=== PATIENT | male | born 1965 | race African-American/Black ===

== ENCOUNTER 2016-11-09 09:19 | Inpatient (IN) ==
[2016-11-09] MEDS ORDERED: LASIX IV ONE (12:01)
[2016-11-09 12:07] LABS: MANUAL DIFF NEEDED? NO
[2016-11-09 12:13] LABS: BASO% 0.4 % (0.0-0.8); EOS# 0.07 X1000 (0.0-0.7); EOS% 0.6 % (0.0-10.0); HEMATOCRIT 41.4 % (42.0-52.0); HEMOGLOBIN 14.2 g/dL (14.0-18.0); IMM GRAN# 0.04 X1000 (0.0-0.04); IMM GRAN% 0.4 % (0.0-0.5); LYMPH% 9.8 % (20.5-51.1); MCH 29.2 PG (27-31); MCHC 34.3 g/dL (33-37); MONO# 1.79 X1000 (0.11-0.59); MPV 13.3 FL (7.4-10.4); NEUT% 72.8 % (42.2-75.2); PLT 229 X1000 (130-400); RBC 4.87 XMIL (4.7-6.1)
[2016-11-09] MEDS ORDERED: LOVENOX SUBQ SCH (12:15)
[2016-11-09] MEDS: PROTONIX IV SCH ×2 (12:18→22:08)
[2016-11-09] MEDS: CARDIZEM 100 MG/NS 100 MG/100 ML IVPB IV SCH ×3 (12:18→22:04)
[2016-11-09] MEDS: SODIUM CHLORIDE 0.9% INJ SCH (12:18)
[2016-11-09 12:35] LABS: HEMOGLOBIN A1C 5.8 % (4.8-6.0)
[2016-11-09 12:38] LABS: ALBUMIN 3.4 g/dL (3.5-5.0); CALCIUM 8.9 mg/dL (8.8-10.2); POTASSIUM 3.6 mmol/L (3.5-5.1); TOTAL BILIRUBIN 1.69 mg/dL (0.20-1.00); TOTAL PROTEIN 6.5 g/dL (6.3-8.3)
--- NOTE | 2016-11-09 12:43 | Diag Imaging Result Doc PS360 ---
EXAM: CHEST-PORTABLE - 11/09/2016 HISTORY: sob TECHNIQUE: Portable chest 1230 COMPARISON: 10/28/2013 FINDINGS: There is stable cardiomegaly. There is prominence of central vascular markings on the right which appears to be chronic. There is limited detail the left base due to technical factors. The remainder lungs appear essentially clear. There is no gross vascular congestion, pleural effusion, or pneumothorax identified. IMPRESSION: Stable cardiomegaly and prominence of central vascular markings on the right. No definite acute changes. There is limited detail the left base due to technical factors. Electronically signed by Williams Torres 11/09/2016 12:41 PM
--- NOTE | 2016-11-09 12:47 | EKG Report ---
Test Performed on : 11/09/2016 09:53:49 AM Test Reason : chest pain Blood Pressure : / mmHG Vent. Rate : 125 BPM Atrial Rate : 359 BPM P-R Int : 000 ms QRS Dur : 102 ms QT Int : 366 ms P-R-T Axes : 000 -55 108 degrees QTc Int : 528 ms Atrial flutter. with variable AV block. Left axis deviation Inferior infarct , age undetermined Possible Anterior infarct (cited on or before 22-OCT-2013) ST \T\ T wave abnormality, consider lateral ischemia Abnormal ECG When compared with ECG of 28-OCT-2013 21:12, Atrial flutter. has replaced Sinus rhythm. Vent. rate has increased BY 55 BPM Incomplete right bundle branch block is no longer present Inferior infarct is now present Confirmed by Eder DIMAS, Armen Lazar ([id number]) on 11/09/2016 6:23:24 PM
[2016-11-09 13:41] LABS: ALLEN TEST NO; BLOOD TYPE ARTERIAL; DRAW SITE L BRACHIAL; METHB 0.9 % (0.0-1.5); PCO2(98.6) 36 mmHg (35-45); PO2(98.6) 70 mmHg (60-100); SAMPLE BLOOD; SAO2 96.3 % (95.0-100.0); THB 14.5 g/dL (11.5-17.4); pH(98.6) 7.46 (7.35-7.45)
[2016-11-09 13:50] LABS: MODALITY CANNULA
[2016-11-09] MEDS ORDERED: LOVENOX SUBQ ONE (14:29)
[2016-11-09] MEDS ORDERED: CORDARONE 150 MG/D5W 150 MG/100 ML IV.SOLN IV ONE (14:32)
[2016-11-09] MEDS ORDERED: ASPIRIN PO STA (14:39)
--- NOTE | 2016-11-09 14:57 | CONSULTATION ---
DATE OF CONSULTATION: 11/09/2016 IMPRESSION: 1. Hhjol-qy-vipssvm systolic heart failure. 2. Hypertensive cardiomyopathy with reduced left ventricular systolic function. 3. Minimal coronary atherosclerosis by previous coronary angiography in 2013. 4. Abnormal troponin 1.3 possibly related to [id number] systolic heart failure. 5. Atrial flutter with variable but rapid ventricular rate contributing to exacerbation of congestive heart failure and symptomatology. 6. Hypertension. 7. Type 2 diabetes mellitus. 8. Chronic kidney disease probably related to hypertension. 9. Medical noncompliance. 10. Sleep apnea. RECOMMENDATIONS: 1. Diuresis. 2. Rate control with intravenous Cardizem transitioning to beta fran. 3. Intravenous amiodarone to see if sinus rhythm could be restored. 4. Lovenox 1 mg/kg subcutaneously q.12. 5. Utilize hydralazine acutely to help improve blood pressure control. Transitioning to carvedilol as the beta-fran choice would also be useful for blood pressure control. 6. Patient counseled at length regarding the need for medical compliance. HISTORY: This 50-year-old, -[place]ian male with past history of hypertensive cardiomyopathy with left ventricular systolic dysfunction, minimal coronary atherosclerosis by coronary angiography in 2013, longstanding hypertension, obstructive sleep apnea type 2 diabetes mellitus and medical noncompliance was admitted from Dr. Mayorga's office after presenting with progressive dyspnea symptoms. He was found to be in atrial flutter with variable but rapid ventricular response and with signs of congestive heart failure. He admits not consistently taken any hypertensive medications. A week ago. He started having progressive dyspnea symptoms. Last night, he had a difficult time with orthopnea and was unable to wear his CPAP. There was no chest pain. He notes some mild palpitations. He was found to have signs of congestive heart failure and was hypertensive with irregular tachycardia and ECG monitor showing atrial flutter with variable block and rapid ventricular rate response. He has been admitted to the Intensive Care Unit and diuresis has been initiated. PAST MEDICAL HISTORY: 1. Longstanding hypertension. 2. Hypertensive cardiomyopathy with reduced left ventricular systolic function. 3. Medical noncompliance. 4. Obstructive sleep apnea. 5. Type 2 diabetes mellitus. 6. Minimal coronary atherosclerosis by coronary angiography in 2013. PAST SURGICAL HISTORY: None. ALLERGIES: He has no known drug allergies. MEDICATIONS: Prior to admission as listed. SOCIAL HISTORY: He is single and lives. At home. He quit smoking 20 years ago. He does not use alcohol. FAMILY HISTORY: Negative for premature coronary disease. REVIEW OF SYSTEMS: Pulmonary noteworthy for dyspnea and orthopnea. Gastrointestinal: Negative. Constitutional: Negative. The rest of review of systems is noteworthy for erectile dysfunction with one of his antihypertensive medications. The remainder of review of systems negative/noncontributory and 14 total systems reviewed PHYSICAL EXAMINATION: General: This is a pleasant, middle-aged, -[place]ian male, in no distress. Blood pressure 176/123. Heart rate 123 and irregular with ECG monitor showing atrial flutter with variable rapid ventricular rate response. HEENT: Extraocular movements intact. Mucous membranes moist. Neck: Supple without discernible jugular distention. Chest: Auscultation of the chest reveals bibasilar inspiratory crackles more so on the right days. Cardiac exam: Reveals an irregular rate and rhythm without appreciable murmur or gallop. Abdomen: Soft, nontender. Bowel sounds are normal. Extremities: Without edema. Neurologic Exam: Reveals him to be alert, fully oriented. Speech is fluent. Moves all 4 extremities equally well. Skin: Warm and dry. Psychiatric: Reveals mood to be appropriate. ECG demonstrates atrial flutter with variable AV block, left axis deviation, and probable left hypertrophy with repolarization abnormality. LABORATORY DATA: BUN 14, creatinine 1.6. Troponin 1.38. ProBNP 9547. cc: MD Dashawn Britt MD
[2016-11-09] MEDS: COREG PO SCH ×2 (15:27→20:22)
[2016-11-09] MEDS ORDERED: CORDARONE 540 MG in D5W 289.2 ML IV ONE ×2 (15:30→21:30)
[2016-11-09] MEDS ORDERED: CORDARONE 360 MG/D5W 360 MG/200 ML IV.SOLN IV ONE (15:30)
[2016-11-09 15:46] LABS: CK INDEX 6.2 (0.0-2.5); CK-MB 53.53 ng/mL (0.0-5.0)
[2016-11-09] MEDS: HUMALOG SUBQ SCH ×2 (18:32→20:12)
[2016-11-09] MEDS: APRESOLINE PO SCH (20:22)
[2016-11-09] MEDS: LASIX IV SCH (20:22)
--- NOTE | 2016-11-09 21:37 | HISTORY AND PHYSICAL ---
CHIEF COMPLAINT: Shortness of breath, paroxysmal nocturnal dyspnea, orthopnea, rapid heart rate for the last 2 days. HISTORY OF PRESENT ILLNESS: He is a 50-year-old male, noncompliant, hypertension, heart disease. Came to my office with the above symptoms. Patient extremely hypertensive, blood pressure is 170/110. Heart rate is 160. EKG showed atrial flutter with atrial fibrillation and ST depression in the lateral leads. He denies any chest pain. He stopped taking the medicine. He had a cold a few days ago. He is admitted in ICU for a new onset of atrial fibrillation with decompensated congestive heart failure. As a result, a hospital admission was warranted. Patient was started on IV Cardizem and IV Cordarone drip. On arrival, patient has positive cardiac enzymes. Started on low molecular weight heparin. Cardiology consult was obtained. PAST MEDICAL HISTORY: Type 2 diabetes, metabolic syndrome, gout, hypertension, heart disease with chronic systolic heart failure, EF 35%. Sleep apnea under BiPAP machine by Dr. Chawla. Chronic kidney disease, baseline creatinine 1.6. Cardiac catheterization in 2013, mild coronary artery disease. No renal artery stenosis. MEDICINES IN MY OFFICE: Allopurinol 300 daily, chlorthalidone 50 daily, Coreg 25 p.o. b.i.d., Lanoxin 125 mcg daily, potassium 20 mEq daily, Lotrel 10/40 daily, Precose 50 mg 3 times daily, Ultracet as needed. ALLERGIES: Not known. SOCIAL HISTORY: 6 years. Works in [employer]. Lives in [place]. No smoking, no alcohol. FAMILY HISTORY: Father of heart attack at 60. Mom of heart attack at 60. HEALTH MAINTENANCE: Influenza vaccine declined. Last prostate and PSA exam May 2016. REVIEW OF SYSTEMS: HEENT: No headache. No vision problem. No earache. No sore throat. Neck: No goiter. No lymphadenopathy. No bruit. Cardiopulmonary: Atypical chest pain, shortness of breath, PND, orthopnea. Swelling of legs. GI: No nausea, vomiting, abdominal pain. : No history of hesitancy, frequency. Endocrine: History of gout, stable. Skin: No skin rashes. No back pain. Neurologic: No focal symptoms or weakness. PHYSICAL EXAMINATION: VITAL SIGNS: Blood pressure is 170/130, heart rate is 140 in my office. Mild respiratory distress, and afebrile. 5 feet 11, 234 pounds. HEENT: Atraumatic, normocephalic. Pupils equal, react to light. TMs are normal. Nose and throat within normal limits. NECK: Supple. No lymphadenopathy. JVD is elevated. CHEST: Scattered wheezing. HEART: Sounds are erratic. No murmur. ABDOMEN: Belly is soft, obese, nontender. Good bowel sounds. Mild peripheral edema. NEUROLOGICAL: No neurological deficits noted. INVESTIGATIONS: CBC: White cell count 11, hematocrit 41, platelets 229,000. ABG: PH is 7.46, pCO2 36, pO2 70. Bicarb 26. SMA7: Sodium 142, potassium 3.6, chloride 103, BUN 14, creatinine 1.6, glucose 116, A1c 5.8. Total bilirubin 1.69, AST 139, CK-MB index positive. Troponin was positive. ProBNP 9500. Thyroid function tests were normal. Chest x-ray, cardiomegaly. Mild increased pulmonary vasculature. EKG, atrial flutter with depression in the lateral leads. ASSESSMENT AND PLAN: A 50-year-old male, noncompliant, with hypertension, heart disease with chronic systolic heart failure, cardiomegaly, chronic kidney disease stage 1, creatinine 1.6. Presented to our office with chest pain, shortness of breath, atrial flutter and admitted in intensive care unit. PLAN: 1. IV Cardizem drip, control the blood pressure and heart rate. 2. IV Cordarone drip. 3. Positive cardiac enzyme non Q-wave myocardial infarction. Currently pain free on Lovenox. Last left heart catheterization 2013. Follow up on serial cardiac enzymes. Continue on aspirin. 4. Gastrointestinal prophylaxis with IV Protonix. We will reconcile his home medications. Currently stable. We will follow up on the clinical course. cc: Dashawn Mayorga MD
[2016-11-09 22:11] LABS: CK-MB 27.85 ng/mL (0.0-5.0)
[2016-11-10] MEDS: APRESOLINE PO SCH ×3 (04:56→20:04)
[2016-11-10 06:21] LABS: HEMATOCRIT 39.8 % (42.0-52.0); HEMOGLOBIN 13.6 g/dL (14.0-18.0); MCH 29.4 PG (27-31); MCHC 34.2 g/dL (33-37); MCV 86.1 FL (81-99); MPV 12.8 FL (7.4-10.4); RBC 4.62 XMIL (4.7-6.1)
[2016-11-10] MEDS: HUMALOG SUBQ SCH ×4 (06:39→20:04)
[2016-11-10 06:44] LABS: CALCIUM 8.7 mg/dL (8.8-10.2); MAGNESIUM 1.8 mg/dL (1.5-2.7); POTASSIUM 3.1 mmol/L (3.5-5.1)
--- NOTE | 2016-11-10 07:03 | EKG Report ---
Test Performed on : 11/10/2016 06:08:23 AM Test Reason : afib Blood Pressure : / mmHG Vent. Rate : 079 BPM Atrial Rate : 357 BPM P-R Int : 000 ms QRS Dur : 114 ms QT Int : 468 ms P-R-T Axes : 000 -46 116 degrees QTc Int : 536 ms Atrial flutter. with variable AV block. Left anterior fascicular block Cannot rule out Anterior infarct (cited on or before 22-OCT-2013) ST \T\ T wave abnormality, consider lateral ischemia Prolonged QT Abnormal ECG When compared with ECG of 09-NOV-2016 09:53, Vent. rate has decreased BY 46 BPM Serial changes of Anterior infarct present Confirmed by Eder DIMAS, Armen Lazar ([id number]) on 11/14/2016 12:36:36 PM
[2016-11-10 07:07] LABS: CK INDEX 2.7 (0.0-2.5); CK-MB 14.25 ng/mL (0.0-5.0)
[2016-11-10] MEDS ORDERED: KLOR-CON PO ONE ×2 (07:32→10:21)
[2016-11-10] MEDS: CARDIZEM 100 MG/NS 100 MG/100 ML IVPB IV SCH (07:34)
[2016-11-10] MEDS: LOVENOX SUBQ SCH (08:08)
[2016-11-10] MEDS: LASIX IV SCH (08:08)
[2016-11-10] MEDS: ASPIRIN PO SCH (08:08)
[2016-11-10] MEDS: PRINIVIL PO SCH ×2 (08:08→20:04)
[2016-11-10] MEDS: COREG PO SCH ×2 (08:08→20:04)
[2016-11-10] MEDS ORDERED: LASIX IV SCH (09:00)
--- NOTE | 2016-11-10 09:04 | PROGRESS NOTE ---
DATE: 11/10/2016 SUBJECTIVE: The patient is out of bed. Denies of any chest pain, shortness of breath improved. No swelling of feet appreciated on Dr. Los Ortez's consult. REVIEW OF SYSTEMS: Other than above, none reported. OBJECTIVE: Vital Signs: Low-grade fever. Blood pressure is 132/84, heart rate is 102, 94% on room air. Input and output were negative by 2 L. HEENT: Exam within normal limits. Neck: Supple. No lymphadenopathy. No goiter. Chest: Bilateral air entry. Heart: Heart sounds are irregular. Abdomen: Belly is soft, nontender. Good bowel sounds. Extremities: No peripheral edema noted. INVESTIGATIONS: EKG showing atrial flutter. CBC: White cell count 15, hematocrit 39, platelets 217. SMA 7: Sodium 142, potassium 3.1, creatinine 1.6. A1c 5.8. CK:MB index positive. Total BNP 6000. ASSESSMENT: 1. Persistent atrial flutter/fibrillation on Cordarone drip and Cardizem drip. 2. Hypertension. Continue on Coreg and lisinopril. Ejection fraction is 35%. 3. Positive cardiac enzymes, non-Q myocardial infarction. Previous catheterization was negative. 4. Continue on subcutaneous heparin. PLAN OF CARE: We will discuss with Dr. Los Ortez possible electrocardioversion and possible catheterization and continue present medical therapy. LEVEL OF DOCUMENTATION: 35 minutes. cc: Dashawn Mayorga MD
[2016-11-10 09:25] LABS: CK INDEX 2.6 (0.0-2.5); CK-MB 13.33 ng/mL (0.0-5.0)
--- NOTE | 2016-11-10 10:39 | PROGRESS NOTE ---
DATE: 11/10/2016 SUBJECTIVE: Patient denies dyspnea or chest discomfort on room air. OBJECTIVE: Vital Signs: Blood pressure 132/84, heart rate 91 and regular, oxygen saturation 94% on room air. Neck: There is no significant jugular venous distention. Chest: Clear to auscultation. Cardiac Examination: Reveals a regular rate and rhythm without appreciable murmur or gallop. Abdomen: Soft and nontender. Extremities: There is no evidence of peripheral edema. Laboratory Data: Includes a potassium of 3.1, CPK 508, CK-MB 13.3, troponin 1.86. IMPRESSION: 1. Acute on chronic systolic heart failure. 2. Hypertensive cardiomyopathy with systolic dysfunction. 3. Abnormal troponin up to 1.86. Consider possible non-ST elevation myocardial infarction or potentially related to acute on chronic systolic heart failure. 4. Minimal coronary atherosclerosis by previous coronary angiography in 2013. 5. Atrial flutter potentially contributing to exacerbation of congestive heart failure. 6. Hypertension. 7. Type 2 diabetes mellitus. 8. Chronic kidney disease, probably related to hypertension. 9. Medical noncompliance. RECOMMENDATIONS: 1. Continue carvedilol and adjust. 2. Continue aspirin daily. 3. Continue Lovenox 1 mg/kg subcutaneous q.24. 4. Transition to oral Lasix. 5. Continue hydralazine. 6. Angiotensin converting enzyme inhibitor as tolerated. 7. Supplement potassium. 8. Re-evaluate coronary artery disease with cardiac catheterization/coronary angiography. This was discussed with the patient and he wished to proceed. cc: MD Dashawn Britt MD
[2016-11-10] MEDS: SODIUM CHLORIDE 0.9% INJ SCH ×2 (12:14→20:04)
[2016-11-10] MEDS: PROTONIX IV SCH ×3 (12:14→20:52)
[2016-11-10] MEDS: CORDARONE PO SCH ×2 (12:16→17:39)
[2016-11-10 15:16] LABS: CK INDEX 1.8 (0.0-2.5); CK-MB 7.43 ng/mL (0.0-5.0)
[2016-11-10] MEDS: LASIX PO SCH (20:04)
[2016-11-10] MEDS: KLOR-CON PO SCH (20:04)
[2016-11-11 00:34] LABS: CK INDEX 1.5 (0.0-2.5); CK-MB 4.88 ng/mL (0.0-5.0)
[2016-11-11 05:03] LABS: MANUAL DIFF NEEDED? NO
[2016-11-11 05:16] LABS: INR 1.47; PROTIME 15.8 Seconds (9.2-11.7)
[2016-11-11 05:19] LABS: BASO% 0.3 % (0.0-0.8); EOS# 0.02 X1000 (0.0-0.7); EOS% 0.1 % (0.0-10.0); HEMATOCRIT 38.1 % (42.0-52.0); HEMOGLOBIN 13.4 g/dL (14.0-18.0); IMM GRAN# 0.03 X1000 (0.0-0.04); IMM GRAN% 0.2 % (0.0-0.5); LYMPH# 1.12 X1000 (1.2-3.4); LYMPH% 8.1 % (20.5-51.1); MCH 29.5 PG (27-31); MCHC 35.2 g/dL (33-37); MCV 83.7 FL (81-99); MONO# 1.89 X1000 (0.11-0.59); MONO% 13.7 % (1.7-9.3); MPV 12.5 FL (7.4-10.4); NEUT% 77.6 % (42.2-75.2); PLT 213 X1000 (130-400); RBC 4.55 XMIL (4.7-6.1)
[2016-11-11] MEDS: APRESOLINE PO SCH ×2 (05:24→13:05)
[2016-11-11 05:53] LABS: CALCIUM 8.6 mg/dL (8.8-10.2); POTASSIUM 3.2 mmol/L (3.5-5.1)
[2016-11-11] MEDS: HUMALOG SUBQ SCH ×4 (06:07→21:15)
[2016-11-11] MEDS ORDERED: NITROGLYCERIN ONE (07:36)
[2016-11-11] MEDS ORDERED: NS ONE (07:44)
[2016-11-11] MEDS ORDERED: HEPARIN ONE (07:44)
[2016-11-11] MEDS: COREG PO SCH ×2 (08:06→20:29)
[2016-11-11] MEDS: LOVENOX SUBQ SCH (08:06)
[2016-11-11] MEDS: LASIX PO SCH ×3 (08:06→09:12)
[2016-11-11] MEDS: PRINIVIL PO SCH (08:06)
[2016-11-11] MEDS: KLOR-CON PO SCH ×2 (08:06→20:28)
[2016-11-11] MEDS: ASPIRIN PO SCH (08:06)
[2016-11-11] MEDS: CORDARONE PO SCH ×3 (08:06→16:01)
--- NOTE | 2016-11-11 09:09 | PROGRESS NOTE ---
DATE: 11/11/2016 SUBJECTIVE: The patient was sitting out of the bed. He still in atrial fibrillation and no chest pain, no swelling. Patient was seen by core setter. PHYSICAL EXAMINATION: Vital Signs: Has low grade fever. Vitals are stable. Blood pressure is 120/97, 97% on room air. HEENT: Within normal limits. Neck: Supple. Chest: Clear. Heart: Heart sounds are irregular. Abdomen: Belly is soft, obese. Extremities: No peripheral edema. Neurological: No obvious neurological deficits. INVESTIGATIONS: White cell count 13.8, hematocrit 38, platelets 213,000. PT 15. INR 1.4. SMA-7 sodium 143, potassium 3.2, chloride 103, BUN 27, creatinine 1.8. Calcium 8.6, positive cardiac enzymes. Free T4 is normal. Chest x-ray was stable. ASSESSMENT AND PLAN: 1. Congestive heart failure due to systolic dysfunction with hypertension and atrial flutter. Currently on aspirin, Coreg, and lisinopril. 2. Positive cardiac enzymes. Non Q-wave myocardial infarction. Waiting for catheterization. 3. Mild azotemia. He is euvolemic. Will decrease the Lasix once a day. 4. Hypokalemia. Replace the extra potassium. PLAN OF CARE: He is going for left heart catheterization around 10 o'clock. Based on that, further recommendations will be followed. Plan of care discussed with the patient. cc: Dashawn Mayorga MD
[2016-11-11] MEDS: POTASSIUM CHLORIDE 20 MEQ/SWI 20 MEQ/100 ML IVPB IV SCH ×2 (10:12→13:31)
[2016-11-11] MEDS: SODIUM BICARBONATE 8.4% 150 MEQ in D5W 1,000 ML IV SCH (13:04)
[2016-11-11] MEDS: PROTONIX IV SCH ×2 (13:05→20:29)
[2016-11-11] MEDS: SODIUM CHLORIDE 0.9% INJ SCH ×2 (13:05→20:29)
[2016-11-11] MEDS: MUCOMYST 20% PO SCH ×2 (13:31→21:15)
--- NOTE | 2016-11-11 14:10 | PROGRESS NOTE ---
DATE: 11/11/2016 SUBJECTIVE: Patient continues without dyspnea or chest discomfort. OBJECTIVE: Vital Signs: Blood pressure 100/73, heart rate 104 with ECG monitor showing atrial flutter. Oxygen saturation 98% on room air. Neck: There is no significant jugular venous distention. Chest: Clear to auscultation. Cardiac: Reveals an irregular rate and rhythm without appreciable murmur or gallop. There is no evidence of peripheral edema. LABORATORY DATA: BUN 27. Creatinine 1.8. IMPRESSION: 1. Acute on chronic systolic heart failure, improved. 2. Hypertensive cardiomyopathy with systolic dysfunction. 3. Abnormal troponin up to 1.86. Consider possible [id number]-HN-yrjcxnime myocardial infarction versus related to zslhr-dw-yrwkmic systolic heart failure. 4. Minimal coronary atherosclerosis by previous coronary angiography in 2013. 5. Atrial flutter potentially contributing to exacerbation of congestive heart failure. 6. Hypertension. 7. Type 2 diabetes mellitus. 8. Chronic kidney disease. 9. Medical noncompliance. RECOMMENDATIONS: 1. Reduce lisinopril dose. 2. Continue carvedilol. 3. Continue aspirin. 4. Continue Lovenox for now, but will need to interrupted to permit coronary angiography. 5. Continue oral Lasix. 6. Discontinue hydralazine. 7. Following coronary angiography, resume anticoagulation for thromboembolic risk protection related to atrial flutter and cardiomyopathy. cc: MD Dashawn Britt MD
[2016-11-12 05:47] LABS: INR 1.43; PROTIME 15.4 Seconds (9.2-11.7)
[2016-11-12 05:50] LABS: CALCIUM 8.6 mg/dL (8.8-10.2); MAGNESIUM 2.2 mg/dL (1.5-2.7); POTASSIUM 3.9 mmol/L (3.5-5.1)
[2016-11-12 06:10] LABS: HEMATOCRIT 36.3 % (42.0-52.0); HEMOGLOBIN 12.5 g/dL (14.0-18.0); MCH 28.9 PG (27-31); MCHC 34.4 g/dL (33-37); MPV 13.3 FL (7.4-10.4); RBC 4.32 XMIL (4.7-6.1)
[2016-11-12] MEDS: HUMALOG SUBQ SCH ×4 (06:10→22:21)
--- NOTE | 2016-11-12 06:33 | EKG Report ---
Test Performed on : 11/12/2016 05:55:00 AM Test Reason : nstemi Blood Pressure : / mmHG Vent. Rate : 094 BPM Atrial Rate : 098 BPM P-R Int : 000 ms QRS Dur : 112 ms QT Int : 424 ms P-R-T Axes : 000 -59 079 degrees QTc Int : 530 ms Atrial fibrillation. Left axis deviation Inferior infarct , age undetermined Possible Anterior infarct (cited on or before 22-OCT-2013) Prolonged QT Abnormal ECG When compared with ECG of 10-NOV-2016 06:08, (Unconfirmed) Atrial fibrillation. has replaced Atrial flutter. Confirmed by Eder DIMAS, Armen Lazar ([id number]) on 11/14/2016 12:39:25 PM
[2016-11-12] MEDS: SODIUM BICARBONATE 8.4% 150 MEQ in D5W 1,000 ML IV SCH (08:03)
[2016-11-12] MEDS: PRINIVIL PO SCH (08:04)
[2016-11-12] MEDS: CORDARONE PO SCH ×3 (08:04→17:06)
[2016-11-12] MEDS: KLOR-CON PO SCH ×2 (08:04→21:04)
[2016-11-12] MEDS: ASPIRIN PO SCH (08:04)
[2016-11-12] MEDS: COREG PO SCH ×2 (08:04→21:04)
[2016-11-12] MEDS: LASIX PO SCH (08:04)
[2016-11-12] MEDS ORDERED: NS 100 ML ONE (08:21)
[2016-11-12] MEDS ORDERED: HEPARIN 1000 UNITS/NS 2,000 UNIT/1,000 ML IV.SOLN ONE (08:21)
[2016-11-12] MEDS ORDERED: NITROGLYCERIN ONE (08:23)
[2016-11-12] MEDS ORDERED: VERSED ONE (08:54)
[2016-11-12] MEDS ORDERED: DEMEROL ONE (08:54)
[2016-11-12] MEDS ORDERED: ANESTHESIA PB SET 88 IN 5742 ONE (08:54)
[2016-11-12] MEDS ORDERED: NS 250 ML ONE (08:54)
--- NOTE | 2016-11-12 09:20 | PROGRESS NOTE ---
DATE: 11/12/2016 CHIEF COMPLAINT: Waiting for catheter. Unable to do yesterday because of the creatinine at 1.8. He is given IV saline to prevent the contrast nephropathy. He remains in atrial fibrillation. He is not offering any complaints. PHYSICAL EXAMINATION: Vital Signs: Stable, afebrile. Pulse is 95 and blood pressure is 111/80. Room air oxygen at 100%. HEENT: Within normal limits. Chest: Clear. Heart: Sounds are irregular. Abdomen: Belly is soft, nontender. Extremities: No peripheral edema. Neurological: Exam is intact. INVESTIGATIONS: White cell count 12.8, hematocrit 36.3, platelets 221. PT 15, INR 1.4. SMA 7: Sodium 139, potassium 3.9, chloride 99, BUN 37, creatinine 1.8, glucose 123. Positives enzymes. ASSESSMENT AND PLAN: 1. Non Q-wave myocardial infarction. Waiting for left heart catheterization on gentle hydration. 2. Hypokalemia, stable. 3. Atrial fibrillation/flutter, persistent and currently on Cordarone 200 oral three times a day and Coreg 6.25 oral twice daily. 4. Hypertension and heart disease on lisinopril, Coreg, and hydralazine as needed. We will discuss with Dr. Los Ortez about the possible catheterization today, and continue present medical therapy. He will be transferred out of intensive care unit to the step-down unit coronary intensive care. cc: Dashawn Mayorga MD
--- NOTE | 2016-11-12 11:22 | CARDIAC CATH REPORT ---
DATE: 11/12/2016 PROCEDURE: 1. Right heart catheterization. 2. Left heart catheterization. 3. Selective coronary arteriography, both right and left. 4. Opacification of the right femoral artery with deployment of a 6-[place] Angio-Seal device. HISTORY: This 50-year-old male presented with increasing dyspnea, ruled in for myocardial infarction, abnormal EKG. Dr. Ortez and Dr. Mayorga recommended a right and left heart catheterization for further definition of his coronary anatomy. The patient has a previous history of cardiomyopathy, and now he is in atrial flutter. He has been also diagnosed with renal insufficiency, and in preparation for this procedure he was placed on intravenous bicarbonate and also Mucomyst. Benefits, risks, complications were explained to him. He understood, requested to proceed. DESCRIPTION OF PROCEDURE: The patient came into the cardiac kiln labourer in the fasting state. The right groin was prepped and draped in sterile fashion, anesthetized with lidocaine 1%. He received Demerol 25 mg and Versed 1 mg for sedation. Then a 6-[place] Islander sheath was inserted into the right femoral vein by following the modified Seldinger technique. A [place]-Ezio thermodilution catheter was advanced to the pulmonary artery on the right side. The pulmonary arterial pressure was measured. A sample of blood was drawn for determination of saturation. Then several cardiac outputs by the thermodilution method were obtained. Then the pulmonary wedge pressure was measured again as well as the pulmonary arterial pressure. The [place]- Ezio catheter was pulled back into the right ventricle and then right atrium. Before pulling the catheter, I marlen a sample of blood from the superior vena cava to make sure that the PA saturation was accurate, and they actually matched very well. Then the [place]-Ezio catheter was removed, the sheath was flushed. Then a 6-[place] Islander sheath was inserted into the right femoral artery by following the modified Seldinger technique. Using a 6-[place] right Rianna 4 catheter, the central aortic pressure was measured. Then the aortic valve was negotiated. Left ventricular pressure was measured. Left ventriculogram was not performed because of the patient's renal insufficiency. Then the right coronary artery was selectively opacified in several views. Then this catheter was replaced by a 6-[place] left Rianna 5 catheter. With this catheter, the left coronary artery was selectively opacified in multiple projections. Then this 6-[place]er left Rianna 5 catheter was removed, and the right femoral artery was opacified. An Angio-Seal device was deployed successfully. The venous sheaths were removed manually, and hemostasis was accomplished by hand compression. The patient tolerated the procedure quite well without any obvious complication. SUMMARY OF THE HEMODYNAMIC FINDINGS: The initial pulmonary arterial pressure is 52/25 with a mean of 36. The initial wedge pressure mean is 13. The patient is in atrial flutter, so there is no well-defined a or v waves. The average cardiac output by thermodilution was 5.10 L and the index was 2.27 L/min/m2 of body surface area. The second set of pulmonary pressure was 58/32 with a mean of 40. The pulmonary wedge the second time was 17 mmHg. The right ventricular pressure was 61/12. The right atrial pressure mean was 12. The pulmonary saturation was 56%. The superior vena cava saturation was 57%. There was no suggestion of shunt. The femoral artery saturation was 93%. The left ventricular pressure was 82/9. The central aortic pressure was 82/65 with a mean of 72. The final central aortic pressure was 83/62 with a mean of 72. The Gregory cardiac output was 4.76 L/min with an index of 2.12 L/min. In summary, these hemodynamics indicate relatively low filling pressures on the left side as well as on the right side. Cardiac output is relatively low. There is moderate pulmonary hypertension. Mean pressure is 40 mmHg. There is no evidence of shunt. SUMMARY OF THE ANGIOGRAPHIC FINDINGS: 1. Left main coronary artery: The left main coronary artery is anatomically normal. It is a large vessel, caliber of 6 mm, divides into LAD and circumflex. 2. Left anterior descending coronary artery: This vessel is large, shows some irregularities in its lumen, gives rise to several septal branches. Distally, it gives rise to a couple of diagonal branches and a tiny apical LAD. No critical lesions are noted along the course of the LAD. 3. Circumflex coronary artery: There is a sort of ramus intermedius branch that comes proximally off of the circumflex. This actually would be a high lateral branch. This vessel is anatomically normal. Then the circumflex gives rise to a A-V branch which is small and free of any significant disease. Beyond that, the circumflex shows some diffuse irregularities, and in its terminal portion, the circumflex coronary artery demonstrates a stump in one of the terminal subdivisions of the posterolateral branch. 4. Right coronary artery: The right coronary artery is a large dominant vessel, caliber of 4.5 mm. It gives rise to acute marginal branches, shows diffuse plaque in the order of 30%. Distally, there are diffuse irregularities, nothing critical. The terminal branches of the right coronary artery are the PDA which is small and free of any significant obstruction, the posterolateral branch which is a bifurcating vessel with diffuse disease, somewhat ectatic proximally, no critical lesions noted. LEFT VENTRICULOGRAM: LV gram was not performed in this case. RIGHT FEMORAL ARTERY ANGIOGRAM: The right femoral artery is unremarkable. Angio-Seal device was deployed successfully. IMPRESSION: In summary, this study shows: 1. Moderate pulmonary hypertension. Mean pulmonary pressure is 40 mmHg. 2. Relatively low cardiac output, by thermodilution is 2.27 L/min/m2 and by Gregory is 2.12 L/min/m2 . 3. Evidence of occlusion of a terminal subdivision of the posterolateral branch of the circumflex. Probably this is embolic. It does not appear to be atherosclerotic. 4. Diffuse atherosclerotic plaque in the right coronary artery which is nonobstructive. 5. Mild diffuse disease in the circumflex system and also very minimal disease in the LAD system. 6. Normal/low LVEDP. 7. Unremarkable right femoral artery, successful deployment of Angio-Seal device. . RECOMMENDATION: Based on these findings, at this time the patient is not in active congestive state. I would suggest to try to get him back into sinus rhythm by means of SUMMER cardioversion. I will resume anticoagulation, keep him on amiodarone if possible. He needs to be on long-term anticoagulation thereafter. His cholesterol panel also needs to be optimized. He will follow up with Dr. Ortez and Dr. Mayorga for his usual medical care. cc: MD Dashawn Lugo MD
[2016-11-12] MEDS: MUCOMYST 20% PO SCH ×2 (12:38→21:02)
[2016-11-12] MEDS: PROTONIX IV SCH ×3 (13:05→22:22)
[2016-11-12] MEDS: SODIUM CHLORIDE 0.9% INJ SCH ×2 (13:05→21:03)
[2016-11-12] MEDS: LOVENOX SUBQ SCH (21:04)
[2016-11-13 06:01] LABS: CALCIUM 8.1 mg/dL (8.8-10.2); MAGNESIUM 2.1 mg/dL (1.5-2.7); POTASSIUM 3.1 mmol/L (3.5-5.1)
[2016-11-13] MEDS: HUMALOG SUBQ SCH ×5 (06:38→20:13)
[2016-11-13] MEDS: KLOR-CON PO SCH ×3 (08:39→17:32)
[2016-11-13] MEDS: PRINIVIL PO SCH (08:39)
[2016-11-13] MEDS: ASPIRIN PO SCH (08:39)
[2016-11-13] MEDS: COREG PO SCH ×2 (08:39→21:03)
[2016-11-13] MEDS: CORDARONE PO SCH ×3 (08:40→17:30)
[2016-11-13] MEDS: LASIX PO SCH (08:40)
[2016-11-13] MEDS ORDERED: COREG PO ONE (12:30)
--- NOTE | 2016-11-13 12:41 | PROGRESS NOTE ---
DATE: 11/13/2016 Mr. Harris is in about the same general condition. His potassium was 3.1. Magnesium was 2.1. He had coronary arteriogram done. He has some shortness of breath this morning. He has moderate pulmonary hypertension and diffuse coronary artery disease. I am going to supplement more potassium on him and continue to watch him on telemetry. cc: MD Dashawn Lo MD
[2016-11-13] MEDS: SODIUM CHLORIDE 0.9% INJ SCH (14:03)
[2016-11-13] MEDS: PROTONIX IV SCH ×2 (14:03→21:02)
[2016-11-13] MEDS: LOVENOX SUBQ SCH (20:06)
[2016-11-13] MEDS ORDERED: SODIUM BICARBONATE 8.4% 150 MEQ in D5W 1,000 ML IV SCH (23:00)
[2016-11-14] MEDS: HUMALOG SUBQ SCH ×4 (06:09→22:21)
[2016-11-14] MEDS: CORDARONE PO SCH ×3 (09:09→17:06)
[2016-11-14] MEDS: COREG PO SCH ×2 (09:10→20:05)
[2016-11-14] MEDS: LASIX PO SCH (09:10)
[2016-11-14] MEDS: ASPIRIN PO SCH (09:10)
[2016-11-14] MEDS: KLOR-CON PO SCH ×2 (09:10→20:06)
[2016-11-14] MEDS: PRINIVIL PO SCH (09:10)
[2016-11-14] MEDS: PROTONIX IV SCH ×3 (11:28→22:26)
--- NOTE | 2016-11-14 11:32 | PROGRESS NOTE ---
DATE: 11/14/2016 Mr. Harris is feeling better. His potassium is still not coming back up. We are going to start him on spironolactone and increase the potassium. Repeat the electrolytes in the morning. His lungs still are somewhat congested. He has some diffuse coronary artery disease. -9 cc: MD Dashawn Lo MD
[2016-11-14] MEDS ORDERED: SOLU-MEDROL IV SCH (20:00)
[2016-11-14] MEDS: ZYLOPRIM PO SCH (20:05)
[2016-11-14] MEDS: SODIUM CHLORIDE 0.9% INJ SCH (20:05)
[2016-11-14] MEDS: LOVENOX SUBQ SCH (20:06)
--- NOTE | 2016-11-15 05:50 | EKG Report ---
Test Performed on : 11/13/2016 06:28:28 AM Test Reason : chest pain Blood Pressure : / mmHG Vent. Rate : 087 BPM Atrial Rate : 087 BPM P-R Int : 218 ms QRS Dur : 118 ms QT Int : 438 ms P-R-T Axes : 083 -66 086 degrees QTc Int : 527 ms Sinus rhythm. with 1st degree AV block. with premature supraventricular complexes. Left axis deviation Nonspecific intraventricular conduction delay ST \T\ T wave abnormality, consider lateral ischemia Prolonged QT Abnormal ECG When compared with ECG of 12-NOV-2016 05:55, (Unconfirmed) Sinus rhythm. has replaced Atrial fibrillation. Borderline criteria for Anterior infarct are no longer present Confirmed by Eder DIMAS, Armen Lazar ([id number]) on 11/16/2016 8:25:55 AM
[2016-11-15] MEDS: HUMALOG SUBQ SCH ×4 (05:55→20:36)
[2016-11-15 06:13] LABS: CALCIUM 8.7 mg/dL (8.8-10.2); POTASSIUM 3.8 mmol/L (3.5-5.1)
[2016-11-15] MEDS: KLOR-CON PO SCH ×2 (08:56→20:34)
[2016-11-15] MEDS: ALDACTONE PO SCH (08:56)
[2016-11-15] MEDS: SOLU-MEDROL IV SCH (08:56)
[2016-11-15] MEDS: ZYLOPRIM PO SCH (08:57)
[2016-11-15] MEDS: CORDARONE PO SCH ×2 (08:57→14:52)
[2016-11-15] MEDS: PRINIVIL PO SCH (08:57)
[2016-11-15] MEDS: ASPIRIN PO SCH (08:57)
[2016-11-15] MEDS: COREG PO SCH ×2 (08:57→20:33)
--- NOTE | 2016-11-15 09:50 | PROGRESS NOTE ---
DATE: 11/15/2016 SUBJECTIVE: Interval history was reviewed over the weekend. Patient had a left heart catheterization with non-flow limiting disease. He has been transferred out of the ICU in a step- down unit. The patient still remains in atrial flutter. He is going for SUMMER and cardioversion. REVIEW OF SYSTEMS: No chest pain. No shortness of breath. No GI symptoms. No symptoms. No swelling of feet. PAST MEDICAL HISTORY: Reviewed. MEDICATIONS: Reviewed. PHYSICAL EXAMINATION: Vital signs: Afebrile. Vitals are stable. Weight 239 pounds. HEENT: Within normal limits. Neck: Supple. No lymphadenopathy. Chest: Clear to auscultation. Heart: Sounds are regular. Abdomen: Belly is soft, nontender. Good bowel sounds. Extremities: No peripheral edema or cyanosis. Neurologic: No obvious neurological deficits. INVESTIGATIONS: Sodium 140, potassium 3.8, chloride 98, BUN 29, creatinine 1.6, glucose 188, magnesium 2.1. ASSESSMENT AND PLAN: 1. Non-Q-wave myocardial infarction. Left heart catheterization. Medical management. 2. Persistent atrial flutter and fibrillation. On Cordarone. Waiting for SUMMER and cardioversion. 3. Hypertension. On Coreg, Lasix, lisinopril, potassium. Add Aldactazide. 4. Gastrointestinal prophylaxis with IV Protonix. 5. Type 2 diabetes on sliding scale. PLAN OF CARE: Waiting for SUMMER and cardioversion. cc: Dashawn Mayorga MD
--- NOTE | 2016-11-15 10:30 | PROGRESS NOTE ---
DATE: 11/15/2016 SUBJECTIVE: The patient continues without dyspnea on room air lying flat. He has not yet eaten breakfast. OBJECTIVE: Vital Signs: Blood pressure 129/96, heart rate 96 and regular, oxygen saturation 100% on room air. Neck: There is no significant jugular venous distention. Chest: Clear to auscultation. Cardiac Exam: Reveals a regular rate and rhythm without appreciable murmur or gallop. There is no evidence of peripheral edema. LAB DATA: Includes BUN 29, creatinine 1.6, potassium 3.8. IMPRESSIONS: 1. Acute on chronic systolic heart failure, improved. 2. Hypertensive cardiomyopathy with reduced left ventricular systolic function. 3. Mild diffuse coronary atherosclerosis. 4. Atrial flutter, rate controlled. Duration not known. 5. Hypertension. 6. Type 2 diabetes mellitus. 7. Chronic kidney disease. 8. History of medical noncompliance. RECOMMENDATIONS: 1. Continue current Lovenox with plans to transition to Eliquis. 2. Continue amiodarone. 3. Pursue transesophageal echocardiography and cardioversion if no evidence of intracardiac thrombus. This was discussed with the patient and will try to arrange this for today. cc: MD Dashawn Britt MD
[2016-11-15] MEDS ORDERED: XYLOCAINE 4% TOPICAL SOLUTION ONE (12:38)
[2016-11-15] MEDS ORDERED: XYLOCAINE 2% VISCOUS ONE (12:38)
[2016-11-15] MEDS ORDERED: NS 1,000 ML ONE (13:16)
[2016-11-15] MEDS ORDERED: ANESTHESIA PB SET 88 IN 5742 ONE (13:17)
[2016-11-15] MEDS ORDERED: CLAVE TWINSITE 32 IN 11959 ONE (13:17)
[2016-11-15] MEDS ORDERED: DIPRIVAN 1% ONE (14:14)
[2016-11-15] MEDS ORDERED: VERSED ONE (14:14)
[2016-11-15] MEDS ORDERED: XYLOCAINE-MPF 2% ONE (14:28)
[2016-11-15] MEDS: LASIX PO SCH (14:52)
--- NOTE | 2016-11-15 15:12 | ECHO REPORT ---
ORDER DATE: 11/09/2016 INDICATION: History of embolism. Hypertension. FINDINGS: 1. Right atrium is mildly enlarged at 4.6 cm. There was injection of agitated saline contrast. This did not seem to demonstrate any evidence of shunting. 2. Mild to moderate tricuspid regurgitation. The RV systolic pressure is 71 suggesting pulmonary hypertension. 3. The right ventricle appears to be normal in size with normal RV systolic function. 4. No significant pulmonic insufficiency. 5. Severe left atrial enlargement at 5.7 cm. 6. No mitral valve prolapse. Likely moderate mitral regurgitation. This was a very eccentric jet and was incompletely visualized. 7. Left ventricle appears to be somewhat dilated with a dimension of 5.7 cm. Severe left ventricular hypertrophy with a posterior and interventricular septal wall thickness of 1.8 cm each. Severely reduced LV systolic function with a calculated EF between 15 and 20% with severe global hypokinesis. 8. The aortic valve opens well. No evidence of stenosis or insufficiency. 9. The aorta appears to be somewhat dilated at the root with a dimension of 4.2 cm. 10. No pericardial effusion seen. cc: MD Dashawn Flor MD
[2016-11-15] MEDS: ELIQUIS PO SCH (20:33)
[2016-11-15] MEDS: SODIUM CHLORIDE 0.9% INJ SCH (20:34)
[2016-11-15] MEDS: PROTONIX IV SCH (20:34)
--- NOTE | 2016-11-16 04:08 | ECHO REPORT ---
ORDER DATE: 11/15/2016 SUMMARY: After topical anesthetic to oropharynx, the patient was sedated per Anesthesiology service with Diprivan. I passed the transesophageal echocardiogram probe into the patient's esophagus without difficulty. SUMMER was subsequently performed and demonstrated: 1. Aortic valve is trileaflet and opens normally on 2-dimensional images. There is trace aortic regurgitation. Mitral valve leaflets appear without structural abnormality. Mitral annulus is dilated in the setting of left ventricular enlargement. There is moderate to severe mitral regurgitation. There is no evidence of systolic flow reversal in left upper pulmonary vein. Tricuspid valve without structural abnormality, with mild tricuspid regurgitation. Pulmonic valve is not well demonstrated. It is without Doppler evidence of dysfunction. 2. Left ventricle appears dilated, with grossly normal wall thickness. Estimated left ejection fraction approximately 30% in the setting of global hypokinesis. Left atrium is mild-to- moderately enlarged. Right ventricle appears mildly enlarged, with moderately reduced right ventricular systolic function. Right atrium appears [id number] enlarged. There is considerable spontaneous contrast in the left atrium, as well as in the left ventricle. There appears to be fairly dense spontaneous contrast in left atrial appendage and probable thrombus. 3. Interatrial septum appears intact. Intravenous agitated saline contrast study demonstrates no evidence of intracardiac shunting. 4. No pericardial effusion. 5. Descending thoracic aorta is free of atheromata. cc: MD Dashawn Britt MD
[2016-11-16] MEDS: HUMALOG SUBQ SCH ×2 (06:24→11:17)
[2016-11-16 07:41] VITALS: BP 144/101
[2016-11-16] MEDS: COREG PO SCH (08:34)
[2016-11-16] MEDS: ELIQUIS PO SCH (08:34)
[2016-11-16] MEDS: ASPIRIN PO SCH (08:34)
[2016-11-16] MEDS: LASIX PO SCH (08:34)
[2016-11-16] MEDS: PRINIVIL PO SCH (08:34)
[2016-11-16] MEDS: KLOR-CON PO SCH (08:35)
[2016-11-16] MEDS: ALDACTONE PO SCH (08:35)
[2016-11-16] MEDS: SOLU-MEDROL IV SCH (08:35)
[2016-11-16] MEDS: ZYLOPRIM PO SCH (10:18)
--- NOTE | 2016-11-16 18:22 | DISCHARGE SUMMARY ---
ADMISSION DATE: 11/09/2016 DISCHARGE DATE: 11/16/2016 DISCHARGING DIAGNOSIS: Acute decompensated systolic heart failure, ejection fraction 30-35% associated with hypertension, heart disease and persistent atrial fibrillation and flutter. SECONDARY DIAGNOSIS: 1. Non-Q-wave myocardial infarction. 2. Type 2 diabetes. 3. Metabolic syndrome. 4. Gout. 5. Sleep apnea, under BiPAP machine. 6. Chronic kidney disease. Baseline creatinine 1.6. CONSULTANTS: Los Ortez MD PROCEDURE: 1. Left heart catheterization, findings: Diffuse atherosclerotic plaque in the right coronary artery which is nonobstructive. Mild diffuse disease in the circumflex as well as the LAD. Evidence of occlusion of posterolateral branch of the circumflex, probably embolic. Moderate pulmonary hypertension. 2. Transesophageal echocardiography: Findings are LV systolic function 30%. Spontaneous dense contrast in the left atrial appendage, probably thrombus. Dilated left ventricle. BRIEF HISTORY: Please see the H and P that was done on 11/09/2016. In brief, he is a 50-year-old pleasant male with the above problems, noncompliant. Admitted to the ICU directly from my office with shortness of breath, chest pain, associated with hypertension and rapid atrial fibrillation, new onset. He was slightly decompensated with elevated proBNP. HOSPITAL COURSE IN ICU FOLLOWS: 1. He was started on IV Cardizem drip and IV Cordarone drip for rate control. Also started on anticoagulation with Lovenox. He was given diuresis. Symptoms were improved. 2. Patient has positive cardiac enzymes. Ruled in [id number] infarction. 3. Patient unable to do a left heart catheterization due to elevated creatinine for which he was given gentle saline and Mucomyst to prevent contrast nephropathy. Left heart catheterization revealed noncritical lesions and posterolateral branch of circumflex occluded , possibly embolic. Patient remains in atrial fibrillation. Continue the anticoagulation and rate control. Subsequently, patient had a transesophageal echo, followed by cardioversion. Unfortunately, the patient has a possible left atrial thrombus. Dr. Ortez reported to continue on Cordarone, rate control, anticoagulation for 3-6 weeks. He will decide possible cardioversion versus EPS study at that time. Results were discussed with the patient. He needs to comply with medications. LABORATORY DATA AT THE TIME OF DISCHARGE FOLLOWS: CBC: White cell count 12 , hematocrit 36, platelets 221,000. PT 15, INR 1.43. SMA7: Sodium 140, potassium 3.8, chloride 98, BUN 29, creatinine 1.6, glucose 188. IMAGING: Chest x-ray: Cardiomegaly. DISCHARGE INSTRUCTIONS: 1. Norvasc 10 mg daily, lisinopril 20 p.o. b.i.d., Coreg 25 p.o. b.i.d., allopurinol 300 daily, Lasix 40 mg daily, potassium 20 mEq daily, Aldactone 25 daily, hydralazine 50 mg p.o. b.i.d., allopurinol 300 daily, Eliquis 5 mg p.o. b.i.d. 2. Control the blood pressure. Continue on BiPAP machine and follow up in my office in [address] Ortez. cc: MD Los Robles MD [facility]
[2016-11-16] MEDS ORDERED: PROTONIX PO SCH (21:00)
== END 2016-11-16 11:45 | disposition home or self-care (01) ==
LOC: DIRADM 09:19 → ICU 10:03 → 3S 11-12 09:43
PROVIDERS: ADMIT Internal Medicine; ATTEND Internal Medicine

== ENCOUNTER 2016-11-19 07:37 | Inpatient (IN) ==
--- NOTE | 2016-11-19 07:59 | Diag Imaging Result Doc PS360 ---
EXAM: CHEST-2 VIEWS HISTORY: sob TECHNIQUE: PA and lateral COMMENT: There is cardiomegaly and increased central pulmonary vascularity. No significant changes occurred since the previous study of 11/09/2016. IMPRESSION: Cardiomegaly and pulmonary arterial hypertension. Electronically signed by Fritz Rosenthal 11/19/2016 7:56 AM
[2016-11-19 08:46] LABS: MANUAL DIFF NEEDED? NO
[2016-11-19 08:51] LABS: BASO% 0.5 % (0.0-0.8); EOS# 0.11 X1000 (0.0-0.7); EOS% 1.1 % (0.0-10.0); HEMATOCRIT 37.4 % (42.0-52.0); HEMOGLOBIN 12.5 g/dL (14.0-18.0); IMM GRAN# 0.05 X1000 (0.0-0.04); IMM GRAN% 0.5 % (0.0-0.5); LYMPH# 1.43 X1000 (1.2-3.4); LYMPH% 14.2 % (20.5-51.1); MCH 28.7 PG (27-31); MCHC 33.4 g/dL (33-37); MONO# 1.06 X1000 (0.11-0.59); MONO% 10.5 % (1.7-9.3); MPV 12.1 FL (7.4-10.4); NEUT% 73.2 % (42.2-75.2); PLT 416 X1000 (130-400); RBC 4.35 XMIL (4.7-6.1)
--- NOTE | 2016-11-19 08:51 | EKG Report ---
Test Performed on : 11/19/2016 07:44:31 AM Test Reason : sob Blood Pressure : / mmHG Vent. Rate : 090 BPM Atrial Rate : 096 BPM P-R Int : 000 ms QRS Dur : 116 ms QT Int : 418 ms P-R-T Axes : 082 -44 092 degrees QTc Int : 511 ms Undetermined rhythm Left axis deviation Low voltage QRS Cannot rule out Anterior infarct , age undetermined T wave abnormality, consider lateral ischemia Abnormal ECG When compared with ECG of 13-NOV-2016 06:28, Current undetermined rhythm precludes rhythm comparison, needs review Unconfirmed Result
[2016-11-19 08:58] LABS: URINE MICRO REVIEW NEEDED? NO; URINE SOURCE CLEAN CATCH
[2016-11-19 09:01] LABS: INR 1.28; PROTIME 13.7 Seconds (9.2-11.7); PTT 28.5 Seconds (22.0-36.0)
[2016-11-19 09:04] LABS: BILIRUBIN URINE NEGATIVE (NEGATIVE); BLOOD URINE NEGATIVE (NEGATIVE); COLOR YELLOW; GLUCOSE URINE NEGATIVE (NEGATIVE); LEUKOCYTES URINE TRACE (NEGATIVE); NITRITE URINE NEGATIVE (NEGATIVE); PH URINE 6.5; PROTEIN URINE NEGATIVE (NEGATIVE); SP GRAVITY URINE 1.012; TURBIDITY URINE CLEAR (CLEAR); UROBILINOGEN URINE NORMAL (NORMAL)
[2016-11-19 09:05] LABS: UR EPITHELIAL CELLS <10 /HPF (<10); URINE BACTERIA NEGATIVE /HPF; URINE CULTURE NEEDED? YES; URINE RBC <10 /HPF (<10); URINE WBC <10 /HPF (<10)
[2016-11-19 09:07] LABS: AGAP 11; ALBUMIN 3.2 g/dL (3.5-5.0); ALKALINE PHOSPHATASE 59 U/L (32-122); BUN 21 mg/dL (8-22); CALCIUM 8.7 mg/dL (8.8-10.2); CHLORIDE 109 mmol/L (98-107); COSMO 292; GOT 26 U/L (10-34); GPT 29 U/L (10-44); MAGNESIUM 2.2 mg/dL (1.5-2.7); POTASSIUM 3.7 mmol/L (3.5-5.1); SODIUM 145 mmol/L (136-145); TCO2 25 mmol/L (25-35); TOTAL BILIRUBIN 0.29 mg/dL (0.20-1.00); TOTAL PROTEIN 6.3 g/dL (6.3-8.3)
[2016-11-19 09:10] LABS: CK PROFILE 214 U/L (24-204)
[2016-11-19 09:28] LABS: CK INDEX 2.6 (0.0-2.5); CK-MB 5.66 ng/mL (0.0-5.0)
[2016-11-19 09:52] LABS: ALLEN TEST YES; BE 0.6 mmoll (-3.0-3.0); BLOOD TYPE ARTERIAL; DRAW SITE L RADIAL; METHB 0.7 % (0.0-1.5); O2(CT) 16.1 mL/dL (15.0-23.0); PCO2(98.6) 36 mmHg (35-45); PO2(98.6) 66 mmHg (60-100); SAMPLE BLOOD; SAO2 96.4 % (95.0-100.0); THB 12.2 g/dL (11.5-17.4); pH(98.6) 7.44 (7.35-7.45)
[2016-11-19 09:58] LABS: MODALITY ROOM AIR
--- NOTE | 2016-11-19 10:30 | ED EKG INTERP ---
This chart was entered by Dana Velasquez Scribe, acting as scribe for Edd Clark MD. EKG Interpretation - EKG Time of EKG reading by physician:: 07:44 EKG Read and Signed by:: Edd Clark EKG Interpretation (*Must complete 3 of following elements*): Abnormal Rate: 90 Rhythm: UNDETERMINED RHYTHM [place]: left (axis deviation) QRS: other (low voltage) [place] Interval: normal ST Wave: non-specific ST changes Comments: cannot rule out anterior infarct This chart was documented by the indicated scribe, (Dana Velasquez Scribe) and accurately reflects the services I performed and decisions made by me, Edd Clark MD, as attested by the provider's signature.
--- NOTE | 2016-11-19 10:46 | PROVIDER DOCUMENTATION ---
This chart was entered by Dana Velasquez Scribe, acting as scribe for Edd Clark MD. HPI-Respiratory General - General Chief Complaint: Shortness of Breath Stated Complaint: RECHECK Time Seen by Provider: 11/19/16 07:47 Source: patient Allergies/Adverse Reactions: Patient Allergies Allergy/AdvReac Type Severity Reaction Status Date / Time No Known Allergies Allergy Verified 10/28/13 19:29 Home Medications: Home Medication List Medication Instructions Recorded Confirmed Last Taken Type Allopurinol [Zyloprim] 300 mg PO DAILY 09/08/12 11/19/16 11/18/16 21:00 History Amlodipine [Norvasc] 10 mg PO DAILY 09/08/12 11/19/16 11/18/16 21:00 History Carvedilol [Coreg] 25 mg PO BID 09/08/12 11/19/16 11/18/16 21:00 History Furosemide [Lasix] 40 mg PO DAILY #0 tablet 09/11/12 11/19/16 Unknown Rx Potassium Chloride E.r. [Klor-Con] 20 meq PO DAILY #0 tablet 09/11/12 11/19/16 Unknown Rx Spironolactone [Aldactone] 25 mg PO DAILY #30 tablet 10/26/13 11/19/16 11/18/16 21:00 Rx Apixaban [Eliquis] 5 mg PO BID #60 tablet 11/16/16 11/19/16 11/18/16 21:00 Rx Hydralazine [Apresoline] 50 mg PO BID #60 tablet 11/16/16 11/19/16 11/18/16 21: 00 Rx - History of Present Illness-Resp Nature of Presenting Problem: 50 y/o M presents to ED CC of SOB. Pt was recently released from hospital. Pt states that " cannot breathe". Pt states when sitting he has no symptoms but when he is doing light activity the shortness of breath increases. Pt has hx of kidney, heart failure. Pt is alert and oriented. Denies having 02 at home. Pt has history of afib. Quality of Pain: reports: none Severity in ED: reports: mild Onset/Duration: reports: gradual Timing: reports: still present Exposure: reports: unknown cause Cough Quality/Degree: reports: no cough Episode Frequency: no prior episodes Current Respiratory Medication Therapy: Initiated see nurses note Modifying Factors: improves with: rest. worse with: other (light activtiy) Associated Symptoms: reports: shortness of breath, short of breath. denies: chest pain/soreness, cough, dizziness, earache, facial pain, fever/chills, headache, heart racing, hurts to breathe, hyperventilating, lightheadedness, nasal drainage, wheezing Similar Symptoms Previously?: Yes Recently seen or treated by another doctor?: Yes Review of Systems - Adult - REVIEW OF SYSTEMS - ADULT Constitutional: denies: chills, fever Eyes: denies: blurred vision, double vision, eye pain, redness Ears, Nose, Mouth & Throat: denies: ear pain, nose pain, loose teeth, throat pain Cardiovascular: denies: chest pain, palpitations, poor circulation, syncope Respiratory: reports: shortness of breath. denies: cough, pleurisy, wheezing Gastrointestinal: denies: abdominal pain, diarrhea, difficulty swallowing, frequent heartburn, nausea, vomiting Genitourinary: denies: dysuria, discharge, hematuria, hesitency Musculoskeletal: denies: bone pain, back pain, muscle aches, neck pain Integumentary: denies: hair loss, mole changes, nail changes, skin thickening Neurological: denies: dizziness/vertigo, headache/migraines, seizure, slurred speech Past History - Adult - PAST MEDICAL HISTORY-ADULT Review of Records: reports: Old Records Reviewed, Nursing Assessment Review Cardiovascular: reports: A-Fib, HTN - IMMUNIZATION STATUS Childhood Immunizations: See Nurse Assessment Flu Vaccine: See Nurse Assessment - FAMILY HISTORY Family History: reviewed, not pertinent - SOCIAL HISTORY Smoking: quit greater than 1 year Substance Use: denies Physical Exam-General - PHYSICAL EXAM-ADULT Initial Vital Signs Reviewed: Yes - CONSTITUTIONAL General Appearance: appears well, alert, no apparent distress - EYES Eyes: PERRL/EOMI, pink conjunctivae - HEAD, EARS, NOSE, MOUTH & THROAT HENMT: normocephalic/atraumatic, moist mucous membranes, normal ENT inspection - NECK Neck: non-tender, full range of motion - RESPIRATORY Respiratory: chest non-tender, lungs clear, normal breath sounds. negative: respiratory distress, decreased breath sounds, accessory muscle use, crackles, rales, rhonchi - CARDIOVASCULAR Cardiovascular: normal peripheral pulses, irregularly irregular - GASTROINTESTINAL (ABDOMEN) Abdominal Exam: normal bowel sounds, non tender, soft - MUSCULOSKELETAL Back Exam: normal inspection, no CVA tenderness, no vertebral tenderness Extremity: normal range of motion, non-tender, pedal edema - SKIN Integumentary: normal color, normal turgor, warm/dry - NEUROLOGIC Neurologic: supervisor laboratory II-XII nml as tested, grossly normal, no motor/sensory deficits - PSYCHIATRIC Psych/Mental Status: oriented x 3 Progress - PLAN OF CARE/RESULTS Progress/Plan/Lab Results: Vital Signs - 8 hr 11/19/16 07:40 11/19/16 08:30 11/19/16 09:27 Temperature 98.4 F Pulse Rate 101 H 96 H 95 H Respiratory Rate 20 26 H 20 Blood Pressure 165/130 158/117 158/117 O2 Sat by Pulse Oximetry 97 95 99 11/19/16 09:41 11/19/16 10:00 11/19/16 10:28 Temperature Pulse Rate 90 79 78 Respiratory Rate 22 19 24 Blood Pressure 147/115 143/97 143/97 O2 Sat by Pulse Oximetry 97 100 100 Laboratory Results - last 24 hr 11/19/16 11/19/16 11/19/16 08:23 08:23 08:23 WBC 10.07 RBC 4.35 L Hgb 12.5 L Hct 37.4 L MCV 86.0 MCH 28.7 MCHC 33.4 RDW Std Deviation 14.6 H Plt Count 416 H MPV 12.1 H Immature Gran % (Auto) 0.5 Neut % (Auto) 73.2 Lymph % (Auto) 14.2 L Marin % (Auto) 10.5 H Eos % (Auto) 1.1 Baso % (Auto) 0.5 Immature Gran # (Auto) 0.05 H Neut # (Auto) 7.37 H Lymph # (Auto) 1.43 Marin # (Auto) 1.06 H Eos # (Auto) 0.11 Baso # (Auto) 0.05 PT INR PTT (Actin FS) D-Dimer 1.01 H Specimen Type Sample Site pH pCO2 pO2 HCO3 Base Excess Oxyhemoglobin ABG O2 Sat (Calculated) ABG O2 Saturation ABG Carboxyhemoglobin ABG Methemoglobin Josh Test A-a O2 Difference Total Hemoglobin Lactate Blood Gas Modality FiO2 % Sodium 145 Potassium 3.7 Chloride 109 H Carbon Dioxide 25 Anion Gap 11 BUN 21 Creatinine 1.3 H Estimated GFR/1.73 m2 > 60 BUN/Creatinine Ratio 16 Glucose 100 Calculated Osmolality 292 Calcium 8.7 L Magnesium 2.2 Total Bilirubin 0.29 AST 26 ALT 29 Alkaline Phosphatase 59 Creatine Kinase 214 H Creatine Kinase Index 2.6 H CK-MB (CK-2) 5.66 H Troponin T Ghv-[id number]-Zfzknguczxr Pept Total Protein 6.3 Albumin 3.2 L Globulin 3.1 Albumin/Globulin Ratio 1.0 Plasma Lactate Urine Source Urine Color Urine Turbidity Urine pH Ur Specific Sharon Urine Protein Ur Glucose (Stick) Ur Ketones (Stick) Urine Blood Urine Nitrite Urine Bilirubin Urobilinogen Dipstick Urine Leukocytes Urine WBC (Auto) Urine RBC (Auto) U Epithel Cells (Auto) Urine Bacteria (Auto) 11/19/16 11/19/16 11/19/16 08:23 08:23 08:23 WBC RBC Hgb Hct MCV MCH MCHC RDW Std Deviation Plt Count MPV Immature Gran % (Auto) Neut % (Auto) Lymph % (Auto) Marin % (Auto) Eos % (Auto) Baso % (Auto) Immature Gran # (Auto) Neut # (Auto) Lymph # (Auto) Marin # (Auto) Eos # (Auto) Baso # (Auto) PT 13.7 H INR 1.28 PTT (Actin FS) 28.5 D-Dimer Specimen Type Sample Site pH pCO2 pO2 HCO3 Base Excess Oxyhemoglobin ABG O2 Sat (Calculated) ABG O2 Saturation ABG Carboxyhemoglobin ABG Methemoglobin Josh Test A-a O2 Difference Total Hemoglobin Lactate Blood Gas Modality FiO2 % Sodium Potassium Chloride Carbon Dioxide Anion Gap BUN Creatinine Estimated GFR/1.73 m2 BUN/Creatinine Ratio Glucose Calculated Osmolality Calcium Magnesium Total Bilirubin AST ALT Alkaline Phosphatase Creatine Kinase Creatine Kinase Index CK-MB (CK-2) Troponin T 0.835 H* Zfq-[id number]-Jzjfhoeccaq Pept 6174 H Total Protein Albumin Globulin Albumin/Globulin Ratio Plasma Lactate Urine Source Urine Color Urine Turbidity Urine pH Ur Specific Sharon Urine Protein Ur Glucose (Stick) Ur Ketones (Stick) Urine Blood Urine Nitrite Urine Bilirubin Urobilinogen Dipstick Urine Leukocytes Urine WBC (Auto) Urine RBC (Auto) U Epithel Cells (Auto) Urine Bacteria (Auto) 11/19/16 11/19/16 11/19/16 08:23 08:47 09:45 WBC RBC Hgb Hct MCV MCH MCHC RDW Std Deviation Plt Count MPV Immature Gran % (Auto) Neut % (Auto) Lymph % (Auto) Marin % (Auto) Eos % (Auto) Baso % (Auto) Immature Gran # (Auto) Neut # (Auto) Lymph # (Auto) Marin # (Auto) Eos # (Auto) Baso # (Auto) PT INR PTT (Actin FS) D-Dimer Specimen Type ARTERIAL Sample Site L RADIAL pH 7.44 pCO2 36 pO2 66 HCO3 25.3 Base Excess 0.6 Oxyhemoglobin 93.9 L ABG O2 Sat (Calculated) 16.1 ABG O2 Saturation 96.4 ABG Carboxyhemoglobin 1.80 ABG Methemoglobin 0.7 Josh Test YES A-a O2 Difference 39.0 Total Hemoglobin 12.2 Lactate 0.90 Blood Gas Modality ROOM AIR FiO2 % 21.0 Sodium Potassium Chloride Carbon Dioxide Anion Gap BUN Creatinine Estimated GFR/1.73 m2 BUN/Creatinine Ratio Glucose Calculated Osmolality Calcium Magnesium Total Bilirubin AST ALT Alkaline Phosphatase Creatine Kinase Creatine Kinase Index CK-MB (CK-2) Troponin T Ndx-G-Iiytilbuzfd Pept Total Protein Albumin Globulin Albumin/Globulin Ratio Plasma Lactate 1.3 Urine Source CLEAN CATCH Urine Color YELLOW Urine Turbidity CLEAR Urine pH 6.5 Ur Specific Sharon 1.012 Urine Protein NEGATIVE Ur Glucose (Stick) NEGATIVE Ur Ketones (Stick) NEGATIVE Urine Blood NEGATIVE Urine Nitrite NEGATIVE Urine Bilirubin NEGATIVE Urobilinogen Dipstick NORMAL Urine Leukocytes TRACE A Urine WBC (Auto) <10 Urine RBC (Auto) <10 U Epithel Cells (Auto) <10 Urine Bacteria (Auto) NEGATIVE Orders Category Date Time Status Cardiac Monitoring DIRECTED Care 11/19/16 08:33 Active Saline Loc NOW Care 11/19/16 08:33 Active cxr [CHEST-2 VIEWS] [RAD] Stat Exams 11/19/16 07:43 Completed ABG [RESP] Routine Lab 11/19/16 09:45 Completed CBC WITH ELECTRONIC DIFF [HEME] Stat Lab 11/19/16 08:23 Completed CK PROFILE [SP CHEM] Stat Lab 11/19/16 08:23 Completed COMPREHENSIVE METABOLIC PANEL [CHEM] Stat Lab 11/19/16 08:23 Completed D-DIMER [CHEM] Stat Lab 11/19/16 08:23 Completed LACTATE, PLASMA [CHEM] Stat Lab 11/19/16 08:23 Completed MAGNESIUM [CHEM] Stat Lab 11/19/16 08:23 Completed PRO B-NATRIURETIC PEPTIDE Stat Lab 11/19/16 08:23 Completed PROTIME WITH INR [COAG] Stat Lab 11/19/16 08:23 Completed PTT [COAG] Stat Lab 11/19/16 08:23 Completed TROPONIN T Stat Lab 11/19/16 08:23 Completed UA NIMS W/REFLEX CULT [URINALYSIS] Stat Lab 11/19/16 08:47 Completed URINE CULTURE [RM] Routine Lab 11/19/16 10:00 Received EKG [EKG] Stat Ther 11/19/16 07:42 Draft PLAN: LABS , EKG, MONITOR PT02 LEVELS Result Diagrams: 11/19/16 08:23 11/19/16 08:23 - REASSESSMENT Reassessment #1 Time Reassessed: 10:42 Status: unchanged (Discussed with Dr. Mayorga for pt's situation. Dr. Tijerina states that pt has a heart cath last week and do not need to worry about the elevated Trop. Pt is on Eliquis and Dr. Mayorga requested to canael the PE stuy. Dr. Mayorga believes that pt's SOB is caused by his A-fib. Dr. Mayorga decided to d/ c pt home with home health.) Departure - Departure Date of Disposition Decision: 11/19/16 Time of Disposition Decision: 10:45 DIAGNOSIS: SOB (shortness of breath) Disposition: HOME 01 Certified Medical Emergency: Emergent Condition: Stable Additional Freetext Instructions: Follow up with Dr. Mayorga in 1-[address] Mayorga will arrange home health. Return to ER if your symptoms worsen. Continue all home medications per Dr. Mayorga's request. Referrals and Follow-Ups: Cara Mayorga MD [Primary Care Provider] - - Critical Care Note This patient required my direct & personal management of CC.: No This chart was documented by the indicated scribe, (Dana Velasquez Scribe) and accurately reflects the services I performed and decisions made by me, Edd Clark MD, as attested by the provider's signature.
[2016-11-19] MEDS ORDERED: LASIX IV ONE (15:30)
--- NOTE | 2016-11-19 20:19 | HISTORY AND PHYSICAL ---
CHIEF COMPLAINT: Shortness of breath, PND, orthopnea, swelling of feet. HISTORY OF PRESENT ILLNESS: He is a 50-year-old male, recently discharged from the hospital 3 days ago for diastolic heart failure due to hypertension, heart disease with underlying persistent atrial fibrillation. He also had a non Q-wave MA, appears to be embolic stroke due to occlusion of circumflex branch. He had a SUMMER done by Dr. Los Ortez. Apparently he had some possible thrombus in left atrial appendage. Sent home on control of the blood pressure, anticoagulation, and atrial fibrillation management. In the meantime, he was doing well. Came in with shortness of breath, PND, orthopnea. Chest x-ray showed CHF with increased pulmonary vasculature as well as plethora. He was given Lasix. Admitted to the telemetry for diuresis. As a result, he was readmitted to the hospital for observation. PAST MEDICAL HISTORY: 1. Type 2 diabetes. 2. Metabolic syndrome. 3. Gout. 4. Hypertension. 5. Heart disease with chronic systolic heart failure, EF 35%. 6. Sleep apnea. 7. Chronic kidney disease. Baseline creatinine 1.6. 8. Left heart catheterization recently as well as SUMMER. MEDICATIONS: Norvasc 10 mg daily, lisinopril 40 mg daily. He was taking combination of Lotrel 10/40 once daily, allopurinol 300 daily, Lasix 40 daily, potassium 20 mEq daily , Aldactone 25 daily, hydralazine 50 p.o. b.i.d., allopurinol 300 daily, Eliquis 5 mg p.o. b.i.d.Lanoxin 125 mcg daily. ALLERGIES: Not known. SOCIAL HISTORY: second time. Works in [employer]. Lives in [place]. No smoking. No alcohol. FAMILY HISTORY: Father of heart attack at 60. Mom of heart attack at 60. HEALTH MAINTENANCE: Influenza vaccine declined. REVIEW OF SYSTEMS: HEENT: No headache. No vision problem. No earache. No sore throat. Cardiopulmonary: No chest pain, shortness of breath, PND, orthopnea, swelling of feet. GI: No nausea, vomiting, abdominal pain. : No history of hesitancy, frequency. Musculoskeletal: No back pain. Neurologic: No neurological symptoms or weakness. PHYSICAL EXAMINATION: VITAL SIGNS: Afebrile, heart rate is 68, blood pressure is 130/82, 92% on room air. GENERAL: He is not in respiratory distress. HEENT: Atraumatic, normocephalic. Pupils equal, react to light. TMs are normal. Nose and throat within normal limits. NECK: Supple. No lymphadenopathy. No goiter. CHEST: Bilateral air entry. Some wheezing. HEART: Sounds are irregular. ABDOMEN: Belly is soft, nontender. Good bowel sounds. RECTAL: Deferred. EXTREMITIES: 1+ pedal edema. No obvious focal NEUROLOGIC: No obvious neurological deficits. INVESTIGATIONS: Chest x-ray with mild increased pulmonary vasculature. Echocardiography rate is well controlled. LABORATORY STUDIES: CBC: White cell count 10, hematocrit 37, platelets 416, 000. PT 13, INR 1.2. ABG on room air pH is 7.44, pCO2 36, pO2 66. SMA 7, creatinine 1.3. Positive troponin and cardiac enzymes. Urinalysis is clear. ASSESSMENT AND PLAN: 1. A 50-year-old male readmitted to the hospital with a recent non-Q-wave myocardial infarction with hypertensive heart disease, chronic systolic heart failure with atrial fibrillation came in with congestive heart failure, positive cardiac enzymes, recently had a cardiac catheterization and transesophageal echocardiogram was done. I discussed with Dr. Ortez. Plan is diuresis on IV Lasix. 2. Blood pressure. Hydralazine, Norvasc, Coreg, and Aldactone. 3. atrial fibrillation. Control the ventricular response. Add the low dose of Lanoxin. 4. Chronic kidney disease. Stable. 5. Gout on Zyloprim. 6. Plan is to re-evaluate in 3-4 weeks about cardioversions versus EPS studies. 7. In the meantime, continue fluid restrictions, daily weights and I's and O's. 8. Discussed with the patient. We will follow up. cc: Dashawn Mayorga MD [facility]
[2016-11-19] MEDS: APRESOLINE PO SCH (20:30)
[2016-11-19] MEDS: COREG PO SCH (20:30)
[2016-11-19] MEDS: ELIQUIS PO SCH (20:30)
[2016-11-20 06:33] LABS: MANUAL DIFF NEEDED? NO
[2016-11-20 06:36] LABS: BASO% 0.7 % (0.0-0.8); EOS# 0.19 X1000 (0.0-0.7); EOS% 2.3 % (0.0-10.0); HEMATOCRIT 37.1 % (42.0-52.0); HEMOGLOBIN 12.3 g/dL (14.0-18.0); IMM GRAN# 0.07 X1000 (0.0-0.04); IMM GRAN% 0.8 % (0.0-0.5); LYMPH# 1.57 X1000 (1.2-3.4); LYMPH% 18.6 % (20.5-51.1); MCH 28.3 PG (27-31); MCHC 33.2 g/dL (33-37); MCV 85.3 FL (81-99); MONO# 0.82 X1000 (0.11-0.59); MONO% 9.7 % (1.7-9.3); MPV 12.2 FL (7.4-10.4); NEUT% 67.9 % (42.2-75.2); PLT 429 X1000 (130-400); RBC 4.35 XMIL (4.7-6.1)
[2016-11-20 07:05] LABS: CALCIUM 8.7 mg/dL (8.8-10.2); MAGNESIUM 2.1 mg/dL (1.5-2.7); POTASSIUM 4.1 mmol/L (3.5-5.1)
[2016-11-20 08:42] VITALS: BP 146/111
[2016-11-20] MEDS: COREG PO SCH (08:48)
[2016-11-20] MEDS: APRESOLINE PO SCH (08:48)
[2016-11-20] MEDS: ELIQUIS PO SCH (08:49)
[2016-11-20] MEDS ORDERED: NORVASC PO SCH (09:00)
[2016-11-20] MEDS ORDERED: KLOR-CON PO SCH (09:00)
[2016-11-20] MEDS ORDERED: LANOXIN PO SCH (09:00)
[2016-11-20] MEDS ORDERED: ALDACTONE PO SCH (09:00)
[2016-11-20] MEDS ORDERED: LASIX IV SCH (09:00)
[2016-11-20] MEDS ORDERED: ZYLOPRIM PO SCH (09:00)
--- NOTE | 2016-11-20 13:58 | Diag Imaging Result Doc PS360 ---
EXAM: CHEST-2 VIEWS INDICATION: hypoxia TECHNIQUE: 2 views COMPARISON: 11/19/2016 FINDINGS: The lungs remain clear. There are no new consolidations. There is stable cardiomegaly and stable prominence of the central vasculature. IMPRESSION: Stable chest. Electronically signed by Fer Perez 11/20/2016 1:55 PM
--- NOTE | 2016-11-22 05:30 | EKG Report ---
Test Performed on : 11/20/2016 06:22:51 AM Test Reason : cp Blood Pressure : / mmHG Vent. Rate : 083 BPM Atrial Rate : 250 BPM P-R Int : 000 ms QRS Dur : 112 ms QT Int : 432 ms P-R-T Axes : 000 -44 113 degrees QTc Int : 507 ms Atrial fibrillation. Left axis deviation ST \T\ T wave abnormality, consider lateral ischemia Prolonged QT Abnormal ECG When compared with ECG of 19-NOV-2016 07:44, (Unconfirmed) Previous ECG has undetermined rhythm, needs review T wave inversion now evident in Anterior leads Confirmed by Eder DIMAS, Armen Lazar ([id number]) on 11/22/2016 7:56:50 AM
--- NOTE | 2016-11-23 18:48 | DISCHARGE SUMMARY ---
ADMISSION DATE: 11/19/2016 DISCHARGE DATE: 11/20/2016 DISCHARGING DIAGNOSES: 1. Acute decompensated systolic heart failure with chronic atrial fibrillation. 2. Type 2 diabetes. 3. Metabolic syndrome. 4. Gout. 5. Hypertension. 6. Sleep apnea. 7. Chronic systolic heart failure with ejection fraction 35%. 8. Chronic kidney disease, creatinine 1.6. 9. Possible left atrial thrombus. BRIEF HISTORY: Please see the H and P that was done on 11/19/2016. In brief, he is a 50-year- old, male with above problems. Recently discharged. Came back with shortness of breath, PND, orthopnea. Swelling. Patient was given IV Lasix. Symptoms were improved. He is in persistent atrial fibrillation. Recently had a SUMMER and left heart catheterization. Dr. Ortez, environment friendly landscape designer, recommended continue medical management for 3-4 weeks and he will decide about his persistent atrial fibrillation. The treatment was optimized by giving and adding Lanoxin and Cordarone. The following day, his symptoms were much improved. LABORATORIES: CBC: White cell count 8.4, hematocrit 37, platelets 429. SMA-7: Sodium 147, potassium 4.1, chloride 109, BUN 22, creatinine 1.6. DISCHARGE INSTRUCTIONS: Coreg 25 p.o. b.i.d., allopurinol 300 p.o. daily. Lotrel 10/40 daily. Cordarone 200 daily, Lasix 40 daily, Aldactone 25 daily. Potassium 20 mEq daily, Eliquis 5 mg p.o. b.i.d. Follow up in my office next week. cc: MD Los Robles MD
== END 2016-11-20 11:55 | disposition home or self-care (01) ==
LOC: ED 07:37 → 4N 11:49
PROVIDERS: ADMIT Internal Medicine; ATTEND Internal Medicine